=== PATIENT | female | born 1960 | race Caucasian/White ===

== ENCOUNTER → 2017-01-06 | Outpatient (CLI) | payer BC ==
[2017-01-06 09:28] LABS: CREATININE 0.68 mg/dL (0.55-1.02)
--- NOTE | 2017-01-06 10:43 | MRI ---
STUDY: MRI OF THE BRAIN WITHOUT AND WITH GADOLINIUM HISTORY: Benign neoplasm of brain, unspecified. Technique: Multiplanar multi-sequence MRI of the brain was obtained utilizing standard departmental protocol. Sagittal and axial T1, axial T2, FLAIR, diffusion (DWI/ADC) images through the brain were performed. 15 cc of Omniscan was administered intravenously without reported complication following acquisition of informed written consent. Post gadolinium axial and coronal T1 weighted images were also perform ed and reviewed. Comparison: None. Findings: Pre gadolinium brain: The sulci, cisterns and ventricles are age appropriate. There are thin conflue nt and several scattered foci of T2 prolongation in the periventricular and subcortical white matter of both hemispheres. This is a nonspecific finding which likely represents mild microangiopathic ch kylee in a patient of this age. There is a 2.0 (AP) x 1.8 (TR) x 1.2 (SI) cm solid uniformly enhancing extra-axial mass overlying th e right frontal convexity, most consistent with a meningioma. There is no evidence of acute territorial infarction, hemorrhage, significant mass effect, or midlin e shift. There are no abnormal intra-axial or extra-axial fluid collections. The major intracranial vascular flow voids appear intact. The vertebral arteries are codominant. Post gadolinium brain: Following the uneventful administration of intravenous gadolinium, there is u niform enhancement of the extra-axial mass overlying the right frontal convexity. IMPRESSION: 1. Uniformly enhancing 2 cm extra-axial mass overlying the right frontal convexity. This findings m ost consistent with a meningioma. 2. Nonspecific white matter change. Reported By:
== END ==
LOC: RAD 08:33
PROVIDERS: ATTEND Internal Medicine
DX: D33.0 Benign neoplasm of brain, supratentorial (principal); Z86.19 Personal history of other infectious and parasitic diseases
CPT/HCPCS: 36415; 70553; 82565; 84520